=== PATIENT | female | born 1970 | race Caucasian/White ===

== ENCOUNTER 2017-03-29 22:26 | Emergency (ER) | payer BC, OTHER ==
--- NOTE | 2017-03-29 23:13 | ED.PDOC ---
History of Present Illness - General Chief Complaint: Lower Extremity Injury Stated Complaint: Left lateral foot pain Time Seen by Provider: 03/29/17 22:26 Source: patient, RN notes reviewed, Vital Signs reviewed, family Additional Information: Pt was walking back to her chair after dancing when she felt a pop and sudden pain at the base of her 5th metatarsal similar to the location and character she felt when she fractured this bone in May. Pt with pain weight bearing, especially - History of Present Illness Occurred: just prior to arrival Pain - Lower Extremity: moderate: Left Foot Method of Injury: twisted - /walking Improving Factors: immobilization Worsening Factors: movement - and weight-bearing Allergies/Adverse Reactions: Allergies Codeine Allergy (Verified 03/29/17 22:28) Home Medications: Ambulatory Orders Famotidine [Pepcid Tab] 20 mg PO BID #60 tab 12/29/15 Ondansetron [Zofran Odt] 4 mg PO Q4H PRN #10 tab 12/29/15 Sucralfate Tab [Carafate Tab] 1 gm PO Q6H #80 tab 12/29/15 Review of Systems - Review of Systems Constitutional: States: no symptoms reported EENTM: States: no symptoms reported Respiratory: States: no symptoms reported Cardiology: States: no symptoms reported Gastrointestinal/Abdominal: States: no symptoms reported Genitourinary: States: no symptoms reported Musculoskeletal: States: see HPI Skin: States: no symptoms reported Neurological: States: no symptoms reported Endocrine: States: no symptoms reported Hematologic/Lymphatic: States: no symptoms reported Past Medical History (General) - Patient Medical History Hx Seizures: No Hx Stroke: No Hx Dementia: No Hx Asthma: No Hx of COPD: No Hx Cardiac Disorders: No Hx Congestive Heart Failure: No Hx Pacemaker: No Hx Hypertension: No Hx Thyroid Disease: No Hx Diabetes: No Hx Gastroesophageal Reflux: No Hx Renal Disease: No Hx Cancer: No Hx Hepatitis C: No - Vaccination History Hx Tetanus, Diphtheria Vaccination: No - unk Hx Influenza Vaccination: No Hx Pneumococcal Vaccination: No - Social History Hx Tobacco Use: No Hx Chewing Tobacco Use: No Hx Alcohol Use: Yes - occ Hx Substance Use: No Hx Substance Use Treatment: No Hx Depression: No Hx Physical Abuse: No Hx Emotional Abuse: No Hx Suspected Abuse: No - Female History Patient : No Family Medical History - Family History Mother Family History: Unknown Physical Exam - Physical Exam General Appearance: Alert, Comfortable, No apparent distress - at rest, Well Developed, Well Groomed, Well Hydrated, Well Nourished Eyes, Ears, Nose, Throat: PERRL/EOMI, pharynx normal Neck: non-tender, full range of motion, supple, normal inspection Cardiovascular/Respiratory: regular rate, rhythm, normal peripheral pulses, no respiratory distress Gastrointestinal/Abdominal: non-tender Back: normal inspection Thigh/Hip: normal inspection, non-tender Leg: normal inspection, non-tender Knee: normal inspection, non-tender Ankle: normal inspection, non-tender Foot: normal inspection, normal ROM, bone tenderness - at base of 5th metatarsal Neuro/Tendon: normal sensation, normal motor functions, normal tendon functions Mental Status: alert, oriented x 3 Skin: normal color Progress - Progress Progress: 03/29/17 23:15 X-ray images reviewed with patient. Splint applied. Pt stable to be discharged home with crutches. Pt is to be non-weight bearing and she is to f/u with her foot/bone specialist. It appears to be re-fractured along the same fracture line from May. Procedures - Splinting Left Foot Hand-Made Type: orthoglass Splint: posterior walking Pre-Proc Neuro Vasc Exam: normal Post-Proc Neuro Vasc Exam: normal Departure - Departure Clinical Impression: Fracture of metatarsal of left foot, closed Qualifiers: Encounter type: initial encounter Metatarsal bone: fifth Fracture alignment: nondisplaced Qualified Code(s): S92.355A - Nondisplaced fracture of fifth metatarsal bone, left foot, initial encounter for closed fracture Time of Disposition: 23:15 Disposition: Discharge to Home or Self Care Condition: Good Departure Forms: ED Discharge - Pt. Copy, Patient Portal Self Enrollment Instructions: DI for Foot Fracture Referrals: MADAY KING [Primary Care Provider] - 1-2 Weeks Home Medications: Ambulatory Orders Famotidine [Pepcid Tab] 20 mg PO BID #60 tab 12/29/15 Ondansetron [Zofran Odt] 4 mg PO Q4H PRN #10 tab 12/29/15 Sucralfate Tab [Carafate Tab] 1 gm PO Q6H #80 tab 12/29/15 Additional Instructions: Non-weight bearing until seen by biochemistry specialist - use crutches for now. Follow-up with biochemistry specialist for further evaluation and management. Return on Friday to request a disc with the images of the x-ray if needed. Ice to affected area at least 3 or 4 times a day for 10-15 minutes to help with pain/swelling.
[2017-03-29] MEDS ORDERED: HYDROCOD/APAP 5/325 (ER DISP) #3 TAB PO ONE ×2 (23:19→23:20)
--- NOTE | 2017-03-29 23:21 | RAD ---
EXAM DESCRIPTION: Foot,Left 3 Views CLINICAL HISTORY: 46 years ,Female Left foot pain, old fracture 10 months ago with acute injury tonight COMPARISON: None. TECHNIQUE: LEFT foot, Three view FINDINGS: Chronic-appearing fragmentation along the superior margin of the talus. Small calcaneal spur. There is a transversely oriented fracture of the proximal diaphysis of the fifth metatarsal that the fracture shows no obvious callus formation. There appears to be some sclerosis. Findings may reflect an incompletely healed chronic fracture. Stress fracture not entirely excluded. No evidence of acute injury. IMPRESSION: Findings suggesting incomplete healing of previous fifth metatarsal fracture versus stress fracture. Recommend comparison to previous films of these are available Electronically signed by: Petra Adler 03/29/2017 11:20 PM CDT
[2017-03-29 23:42] VITALS: TEMP 98; O2SAT 98
[2017-03-29 23:51] VITALS: BP 132/68
== END 2017-03-29 23:15 | disposition home or self-care (01) ==
LOC: ER 22:26
DX: S92.355A Nondisplaced fracture of fifth metatarsal bone, left foot, initial encounter for closed fracture (principal); Z88.6 Allergy status to analgesic agent; X58.XXXA Exposure to other specified factors, initial encounter; Y93.41 Activity, dancing

== ENCOUNTER 2018-01-12 12:09 | Inpatient (IN) | payer BC, OTHER ==
[2018-01-12] MEDS ORDERED: ALUM & MAG HYDROX-SIMETHICONE 30 ML, LIDOCAINE VISCOUS 2% 15 ML PO ONE ×2 (12:18)
[2018-01-12] MEDS ORDERED: LIDOCAINE HCL 2% (MOUTH-THROAT) 15 ML UD ONE (12:20)
[2018-01-12] MEDS ORDERED: ALUM & MAG HYDROX-SIMETHICONE 30 ML UD ONE (12:20)
[2018-01-12] MEDS ORDERED: MORPHINE SULFATE INJ 10 MG/ML VIAL IV ONE ×2 (13:08→14:03)
--- NOTE | 2018-01-12 13:09 | RAD ---
EXAM DESCRIPTION: Abdomen Series CLINICAL HISTORY: epigasatric and substernal pain for 3 hours COMPARISON: December 29, 2015 FINDINGS: AP supine and upright views of the abdomen show a nonspecific, nonobstructive bowel gas pattern with no evidence for free intraperitoneal air. No air-filled dilated loops of small bowel are seen. No significant air-fluid levels are identified. No obvious organomegaly is seen. No abnormal calcifications are seen in the expected location of the renal collecting systems. Single view of the chest shows cardiac silhouette and pulmonary vasculature to be within normal limits. Lungs are normally aerated and clear. Postsurgical changes to the thoracolumbar spine are seen with moderate scoliosis of the spine identified similar to previous. IMPRESSION: Nonspecific abdominal series Electronically signed by: Gilberto Cooper MD 01/12/2018 1:07 PM CDT
[2018-01-12] MEDS ORDERED: PANTOPRAZOLE SODIUM IV 40 MG VIAL IV ONE (14:10)
[2018-01-12] MEDS ORDERED: PROMETHAZINE HCL INJ 25 MG in SODIUM CHLORIDE 0.9% 50ML 50 ML IVPB ONE (14:11)
[2018-01-12] MEDS ORDERED: PROMETHAZINE HCL INJ 25 MG/ML VIAL ONE (14:13)
[2018-01-12] MEDS ORDERED: SODIUM CHLORIDE 0.9% 50ML 50 ML ONE (14:14)
--- NOTE | 2018-01-12 14:28 | CT ---
EXAM DESCRIPTION: CTA Chest: Computed Tomography. CLINICAL HISTORY: epigastric substernal pain, sob, d-dimer COMPARISON: CT scan of the abdomen and pelvis on this visit. TECHNIQUE: Spiral-axial scans at 5.0 mm intervals through the pulmonary arteries and chest after bolus infusion of IV contrast. Lung algorithm-mm 2.5 axial reconstructions. 10.0 mm bilateral PE oblique and rotating short axis thoracic 3-D reformatted images. No adverse reactions. Total Exam DLP: 2155.48 mGy-cm. This exam was performed according to our departmental CT dose-optimization program which includes automated exposure control, adjustment of the mA and/or kV according to patient size and/or use of iterative reconstruction technique; to reduce radiation dose to as low as reasonably achievable (ALARA). FINDINGS: The timing of contrast density in the main pulmonary artery was not optimal, similar to the density in the ascending and descending aorta and less than the density of contrast in the SVC. Contrast seen in the main pulmonary artery to the bilateral segmental arteries with no filling defects. Peripheral segmental pulmonary artery branches are symmetric in the lower lobes and upper lobes. 1.5 cm nonenhancing nodule in the inferior pole of the left thyroid lobe. No soft tissue masses in the bilateral axilla. No soft tissue masses or adenopathy in the mediastinum or hilum bilaterally. No significant abnormalities of the thoracic aorta or proximal brachiocephalic vessels. Minimal dependent atelectasis in the posterior left lower lobe. No abnormal nodules infiltrates. Minimal pleural thickening but no effusion. No pneumothorax. Complex mass interpreted to be part of the upper pole of the left kidney. Posterior thoracic fusion construct bilaterally. Connecting rods T5 to at least the T12 level. IMPRESSION: 1. Technique not optimal, but no CT evidence of acute pulmonary embolus. No significant pulmonary process visualized. 2. 1.5 cm nonenhancing nodule in the left lobe of the thyroid gland. Recommend follow-up thyroid ultrasound according to [facility] Best Practice recommendations utilizing ACR and Nova 3 tiered guidelines for imaging follow-up of incidental thyroid nodules. Please see below.* 3. Posterior thoracic spine fusion construct with connecting rods. 4. Complex mass interpreted to be part of her originating from the upper pole of the left kidney. Please see abdominal pelvic CT scan report. Electronically signed by: Roland Morataya MD 01/12/2018 2:27 PM CDT
--- NOTE | 2018-01-12 15:42 | CT ---
EXAM DESCRIPTION: Abdomen/Pelvis w/Contrast: Computed Tomography. CLINICAL HISTORY: Right upper quadrant epigastric substernal pain, elev d-dimer, AST COMPARISON: None. TECHNIQUE: Spiral-axial scans at 5.0 mm intervals through the abdomen and pelvis, after nonionic IV contrast without oral contrast. Axial 2.5 mm reconstructions. Coronal and sagittal 2.0 mm reconstructions. Delayed scans, liver through the pelvis. Axial-spiral 5mm. No adverse reactions. Total Exam DLP: 1372.96 mGy-cm For the abdomen, and 800.71 mGy-centimeters for the chest . This exam was performed according to our departmental dose-optimization program which includes automated exposure control, adjustment of the mA and/or kV according to patient size and/or use of iterative reconstruction technique; to reduce radiation dose to as low as reasonably achievable (ALARA). FINDINGS: Liver, Stomach, Spleen, Adrenal Glands: Stomach is not distended. 1.7 cm cyst inferior spleen. Other solid organs are unremarkable. Pancreas, Gallbladder, Ducts: Gallbladder well demonstrated. No fluid in the gallbladder fossa. Duct not dilated. Pancreas is unremarkable. Kidneys and Ureters: In the left renal fossa is a complex structure with 3 relatively well-defined cysts ranging in size from 5 cm to 2.5 cm in diameter with a vascular stalk which appears to be connected to the IVC. No vascular connection to the aorta is noted. No fatty stranding or perirenal fascial thickening. Left ureter is not visualized. Right kidney measures 12.8 x 7.8 x 7.5 cm with normal enhancement no hydronephrosis or cysts. No pararenal fascial thickening. Proximal ureter is slightly dilated with distal ureter unremarkable. Mesentery: Minimal density in the mid mesentery in the midline extending inferior to the upper pelvis. Lymph nodes scattered throughout this denser mesentery some with short axis diameters 1.5 cm (series 2, image 42. No free air. No ascites. Aorta: Normal caliber of the abdominal aorta with no para-aortic mass. Small Bowel: Mostly fluid minimal gas and small air-fluid levels but no transitional point with uniform caliber. Terminal Ileum/Cecum: Normal caliber. Posterior and inferior appendix normal caliber. Normal density of the surrounding fat. Colon: Fecal matter with minimal redundancy proximal and mid colon. Minimal redundancy of the sigmoid colon. Pelvic Organs: No radiodense stones in the urinary bladder. Cystic structure on the fundus of a hypoplastic uterus or is part of the vaginal cuff, though surgical clips are not present. Right adnexal multicystic structure, interpreted to be ovary. Trace fluid in the cul-de-sac. Left ovary not definitely seen. No abnormal pelvic calcifications. Spine and Bony Pelvis: Degenerative disc L3-4 L4-5. Scoliosis. Upper lumbar and thoracic posterior fusion construct. Abdominal Wall/Back Soft Tissues: Minimal diastases at the umbilicus but no hernia. Bilateral fatty inguinal hernias not containing bowel. IMPRESSION: 1. Increase density in the mesenteric fat in the mid abdomen beginning just below the pancreas and extending to the level of the upper pelvis. Scattered nodes within this tissue with the largest having a short axis diameter 1.5 cm. No periaortic, periportal, or peripancreatic lymph nodes. No small bowel obstruction or definite inflammatory changes. Differential includes mesenteric adenitis, small bowel enteritis, or lymphoma. 2. 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 No calcifications. No vascular pedicle to the aorta. Normal density of the fat with no perirenal fluid. Hyper trophic right kidney otherwise negative. 3. 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 No fatty inflammatory changes or calcifications. Ligament extends to the left adnexa but no left ovary is seen. Minimal fluid in the cul-de-sac. Hysterectomy? Alternatively, hypoplastic uterus and midline ovary with cyst in the bladder. This could represent a genitourinary tract anomaly with the left kidney. 4. Umbilical diastases and inguinal fatty hernias without bowel. Spondylosis in the lumbar spine and thoracolumbar posterior fusion construct. CRITICAL COMMUNICATION: The critical value was discussed directly by phone with Dr. Lázaro Flaherty at approximately 1450 hours, on January 12, 2018. Electronically signed by: Roland Morataya MD 01/12/2018 3:41 PM CDT
[2018-01-12] MEDS ORDERED: metroNIDAZOLE IV PREMIX 500MG 500 MG in PREMIX BAG 1 BAG IVPB ONE (16:05)
[2018-01-12] MEDS ORDERED: levoFLOXacin 500MG IV 500 MG in PREMIX BAG 1 BAG IVPB ONE (16:05)
--- NOTE | 2018-01-12 16:07 | ED.PDOC ---
History of Present Illness - General Chief Complaint: Cardiovascular Problem Stated Complaint: chest pain Time Seen by Provider: 01/12/18 12:11 Source: patient Exam Limitations: no limitations - History of Present Illness Initial Comments: the patient is a 47-year-old female presenting to the emergency room secondary to epigastric, right upper quadrant and substernal discomfort that got severe about 2-3 hours prior to arrival here today. She had been having some GI symptoms for the last week including some mild nausea with some upper abdominal pain and some diarrhea. No syncope or near-syncope. She denies fevers. No blood in the stool. She does have several chronic issues including her back her uterus and her left kidney. She alsohas a known hiatal hernia that gies her problems sometimes. Pain was severe here today. She has are several doses of IV pain medicationsshe has not thrown up. Allergies/Adverse Reactions: Allergies Codeine Allergy (Verified 01/12/18 12:25) Home Medications: Ambulatory Orders Famotidine [Pepcid Tab] 20 mg PO BID #60 tab 12/29/15 Ondansetron [Zofran Odt] 4 mg PO Q4H PRN #10 tab 12/29/15 Sucralfate Tab [Carafate Tab] 1 gm PO Q6H #80 tab 12/29/15 Review of Systems - Review of Systems Constitutional: States: malaise EENTM: States: no symptoms reported Respiratory: States: no symptoms reported Cardiology: States: chest pain Gastrointestinal/Abdominal: States: abdominal pain, diarrhea, nausea Genitourinary: States: no symptoms reported Musculoskeletal: States: no symptoms reported Skin: States: no symptoms reported Neurological: States: no symptoms reported Endocrine: States: no symptoms reported All other Systems: No Change from Baseline Past Medical History (General) - Patient Medical History Hx Seizures: No Hx Stroke: No Hx Dementia: No Hx Asthma: No Hx of COPD: No Hx Cardiac Disorders: No Hx Congestive Heart Failure: No Hx Pacemaker: No Hx Hypertension: No Hx Thyroid Disease: No Hx Diabetes: No Hx Gastroesophageal Reflux: Yes Hx Renal Disease: No Hx Cancer: No Hx Hepatitis C: No Hx MRSA: No Surgical History: Hysterectomy - Vaccination History Hx Tetanus, Diphtheria Vaccination: No Hx Influenza Vaccination: No Hx Pneumococcal Vaccination: No - Social History Hx Tobacco Use: No Hx Chewing Tobacco Use: No Hx Alcohol Use: Yes - occ Hx Substance Use: No Hx Substance Use Treatment: No Hx Depression: No Hx Physical Abuse: No Hx Emotional Abuse: No Hx Suspected Abuse: No - Female History Patient : No Family Medical History - Family History Mother Family History: Unknown Physical Exam - Physical Exam General Appearance: Alert, Obvious distress Eye Exam: bilateral normal Ears, Nose, Throat: hearing grossly normal, normal ENT inspection, normal pharynx Neck: full range of motion, supple Respiratory: lungs clear, normal breath sounds, no respiratory distress, no accessory muscle use Cardiovascular/Chest: normal peripheral pulses, regular rate, rhythm, no edema Peripheral Pulses: radial,right: 2+, radial,left: 2+, dorsalis pedis,right: 2+, dorsalis pedis,left: 2+ Gastrointestinal/Abdominal: soft, other - pigastric and right upper quadrant discomfort palpation. No true rebound. Rectal Exam: deferred Back Exam: normal inspection, no CVA tenderness Extremity: normal range of motion, non-tender, normal inspection, no pedal edema , normal capillary refill Neurologic: information technology analyst II-XII nml as tested, no motor/sensory deficits, alert, oriented x 3 Skin Exam: normal color Comments: Vital Signs - 24 hr 01/12/18 01/12/18 12:09 12:25 Temperature 97.8 F Pulse Rate [ 73 pulse ox] Respiratory 20 20 Rate Blood Pressure 163/84 [Left Arm] O2 Sat by Pulse 100 Oximetry Progress - Progress Progress: 01/12/18 16:09 the patient is a 47-year-old female presenting to the emergency room with severe epigastric right upper quadrant and substernal discomfort. This is most likely related to small bowel enteritis versus mesenteric adenitis. The patient is being placed on Levaquin and metronidazole. One blood culture has been performed. She is requiring some IV pain medications for pain control. She has received 1 dose of nausea medications as well. She does have numerous chronic findings on her CT scan for which she seems to be aware of. Admit for continuation of IV antibiotics and for monitoring for response. She will be receiving a small IV fluid bolus after the antibiotics are in. Admitted for further care. - Results/Orders Results/Orders: 01/12/18 12:18 Telemetry .CONTINUOUS 01/12/18 12:30 EKG STAT 01/12/18 13:10 Hold Metformin x 48Hrs [id number] 01/12/18 15:19 BLOOD CULTURE Stat 01/12/18 16:05 levoFLOXacin 500MG IV [Levaquin 500MG IV] 500 mg Premix Bag 1 bag IVPB ONCE metroNIDAZOLE IV PREMIX 500MG [Flagyl IV Premix 500 MG/100 ML] 500 mg Premix Bag 1 bag IVPB ONCE Laboratory Results - last 24 hr 01/12/18 01/12/18 01/12/18 12:20 12:20 12:20 WBC 10.4 RBC 4.33 Hgb 12.5 Hct 36.9 MCV 85.2 MCH 28.9 MCHC 33.9 RDW 13.7 Plt Count 282 MPV 8.9 Absolute Neuts (auto) 7.50 H Absolute Lymphs (auto) 1.90 Absolute Monos (auto) 0.90 H Absolute Eos (auto) 0.10 Absolute Basos (auto) 0.00 Neutrophils % 72.5 Lymphocytes % 18.1 L Monocytes % 8.3 Eosinophils % 0.7 L Basophils % 0.4 PT 10.4 INR 0.900 PTT (SP) 28.2 D-Dimer, Quantitative 366 H* Sodium 136 Potassium 3.7 Chloride 103 Carbon Dioxide 26 Anion Gap 10.7 L BUN 10 Creatinine 0.78 BUN/Creatinine Ratio 12.8 Random Glucose 96 Serum Osmolality 270.9 L Calcium 8.5 Magnesium 1.8 Total Bilirubin 1.2 H AST 110 H ALT 59 Alkaline Phosphatase 81 Creatine Kinase 120 CK-MB (CK-2) 1.2 CK-MB (CK-2) % Not Reportable Troponin I < 0.02 B-Natriuretic Peptide 231.0 H* Serum Total Protein 7.1 Albumin 3.9 Globulin 3.2 Albumin/Globulin Ratio 1.2 Amylase 32 Urine Color Urine Appearance Urine pH Ur Specific [place] Urine Protein Urine Glucose (UA) Urine Ketones Urine Blood Urine Nitrite Urine Bilirubin Urine Urobilinogen Ur Leukocyte Esterase Urine RBC Urine WBC Ur Epithelial Cells Urine Bacteria Urine HCG, Qual 01/12/18 01/12/18 12:20 12:38 WBC RBC Hgb Hct MCV MCH MCHC RDW Plt Count MPV Absolute Neuts (auto) Absolute Lymphs (auto) Absolute Monos (auto) Absolute Eos (auto) Absolute Basos (auto) Neutrophils % Lymphocytes % Monocytes % Eosinophils % Basophils % PT INR PTT (SP) D-Dimer, Quantitative Sodium Potassium Chloride Carbon Dioxide Anion Gap BUN Creatinine BUN/Creatinine Ratio Random Glucose Serum Osmolality Calcium Magnesium Total Bilirubin AST ALT Alkaline Phosphatase Creatine Kinase CK-MB (CK-2) CK-MB (CK-2) % Troponin I B-Natriuretic Peptide Serum Total Protein Albumin Globulin Albumin/Globulin Ratio Amylase Urine Color Yellow Urine Appearance Clear Urine pH 6.0 Ur Specific [place] 1.025 Urine Protein 30 Urine Glucose (UA) Negative Urine Ketones Negative Urine Blood Negative Urine Nitrite Negative Urine Bilirubin Small H Urine Urobilinogen 1.0 Ur Leukocyte Esterase Negative Urine RBC 0 Urine WBC 0 Ur Epithelial Cells 1-3 Urine Bacteria 0 Urine HCG, Qual Negative acute abdominal series appears benign. CT scan with contrast for evaluation for pulmonary emboli was negative. CT scan of the abdomen and pelvis with IV contrast shows multiple chronic findings including cyst in place of the left kidney as well as a cyst in the distal ureter into the bladder on the left. She also has a deformed uterus with likely only one ovary that is overtaken by cysts. She also has chronic changes of her spine. More acutely the patient most likely has mesenteric adenitis versus a small bowel enteritis. lesS likely lymphoma is on the differential. Please see CT scan report for details. Departure - Departure Clinical Impression: Mesenteric adenitis Disposition: Admit Patient Referrals: MADAY KING [Primary Care Provider] - 1-2 Weeks Home Medications: Ambulatory Orders Famotidine [Pepcid Tab] 20 mg PO BID #60 tab 12/29/15 Ondansetron [Zofran Odt] 4 mg PO Q4H PRN #10 tab 12/29/15 Sucralfate Tab [Carafate Tab] 1 gm PO Q6H #80 tab 12/29/15 Decision To Admit - Decistion To Admit Decision to Admit Reason: Medical Nature Decision to Admit Date: 01/12/18 Decision to Admit Time: 16:10
[2018-01-12] MEDS ORDERED: metroNIDAZOLE IV PREMIX 500MG 100 ML IVPB ONE (16:09)
--- NOTE | 2018-01-12 16:28 | HP ---
SUPERVISING PHYSICIAN: Kris Flaherty M.D. CHIEF COMPLAINT: Chest pain. HISTORY OF PRESENT ILLNESS: Ms. Ghotra is a 47 year-old female patient that was at work today when she had an acute onset of right upper quadrant and substernal discomfort persisting over the last 2 to 3 hours prior to admission. She noted that she had been having some nausea and diarrhea with some right upper quadrant abdominal pain over the last week, but the pain had worsened today such that she sought medical attention for further evaluation and treatment. She also notes that she had been exposed to a grandson who has had Strep which she tested positive for Strep on 12/10/17 and was treated with Penicillin and Decadron as well as last week one of her granddaughters was visiting that had a gastrointestinal virus with nausea, vomiting and diarrhea. Her laboratory studies initially showed her white count was normal at 10,400 but a left shift was present. She had an elevated D-dimer at 366 with normal PT and PTT. Cardiac troponin showed to be less than 0.02 with amylase normal at 32. BNP was only slightly elevated at 231. Her initial EKG in the Emergency Department showed a normal sinus rhythm without any ST or T wave changes. She was given pain medicine in the E. R. to include morphine, Motrin and some Phenergan which did improve her symptoms as well as a GI cocktail. It should also be noted that the patient has had multiple surgeries on her foot and back, and has had chronic pain with this for which she takes a daily NSAID which includes Naproxen. She denied any blood in her stools in the recent past but has history of gastroesophageal reflux disease and requires daily Nexium that has apparently become quite troublesome in the last month or so if she misses any dose of her Nexium. Radiographically, she had an abdominal x-ray that initially showed nonspecific abdominal series per radiology interpretation with an elevated D-dimer and chest pain. She had a clear thoracic CTA and per radiology interpretation there was no evidence of acute pulmonary embolus and no significant pulmonary processes visualized. 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 Acutel included an increased density in the mesenteric fat in the mid abdomen that began just below the pancreas and extended to the level of the upper pelvis with scattered nodes within the tissue concerning for possible mesenteric adenitis, small bowel enteritis or lymphoma with no small bowel obstruction or definite inflammatory changes noted. Again the findings on CT were concerning for mesenteric adenitis versus enteritis. She was started on antibiotics to include Levaquin and Flagyl and is now going to be admitted to the Medical/Surgical floor for further treatment and evaluation. She was admitted in stable condition. PAST MEDICAL HISTORY: 1. Scoliosis. 2. Gastroesophageal reflux disease. PAST SURGICAL HISTORY: 1. Jag rods in the . 2. Vaginal hysterectomy partial in 2002. 3. Tubal ligation in 1996. 4. Left foot surgery in 2005 and 2016. 5. Lumbar laminectomy of L5, L3 and L7 in 2014. HOME MEDICATIONS: 1. Naprosyn 500 mg as needed. She takes it daily on a regular basis. 2. Nexium 40 mg daily. ALLERGIES: CODEINE. FAMILY HISTORY: Father had prostate cancer and thyroid problems as well as hypertension. She has several aunts who have had breast cancer. SOCIAL HISTORY: The patient lives in [place], [place]. She is . 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 She rarely drinks alcohol and has never smoked tobacco. REVIEW OF SYSTEMS: CONSTITUTIONAL: Notes that she has had some fevers and chills over the last week or so and general malaise. HEENT: Recent Strep pharyngitis. No reported current sore throat, nasal congestion, ear aches. RESPIRATORY: Denies any shortness of breath, cough or wheezing. CARDIOVASCULAR: As noted in History of Present Illness, chest pains in the epigastric region. GASTROINTESTINAL: Abdominal pains, diarrhea and nausea as noted in history of present illness. GENITOURINARY: No dysuria, hematuria, polyuria or other urinary symptoms. NEUROLOGIC: Denies any ataxia, seizures, syncopal episodes or other neurological deficits. PHYSICAL EXAMINATION: VITAL SIGNS: Temperature on admission was 97.8, pulse 73, blood pressure 163/84 , respirations 20, satting 100% on room air. Admission weight 101.8 kg. GENERAL: On exam on the Medical/Surgical floor, the patient appeared to be comfortable in no acute distress and alert. HEENT: Tympanic membranes are clear bilaterally. Oropharynx is pink and moist with no lesions. NECK: Supple, non-tender with full range of motion. CHEST: Lungs were clear to auscultation without any rhonchi, wheezing or rales. CARDIOVASCULAR: Regular rate and rhythm without appreciable murmurs, gallops, or rubs. ABDOMEN: Soft with some epigastric and right upper quadrant discomfort on palpation but no rebound tenderness. Bowel sounds were present. EXTREMITIES: No clubbing, cyanosis or edema. NEUROLOGIC: She is alert and oriented times three. Cranial nerves II-XII are grossly intact. LABORATORY: CBC on admission showed white count 10,400, hemoglobin 12.5, hematocrit 36.9, platelet count 282,000. Differential did show an early left shift. She had a sed rate that was elevated at 30. Coagulation studies showed an elevated D-dimer at 366 with PT 10.4, PTT 28.2. Chemistries showed normal electrolytes, BUN 10, creatinine 0.78, calcium 8.5, magnesium 1.8. Total bilirubin was slightly elevated at 1.2. AST was elevated at 110, alkaline phosphatase normal, ALT normal. Amylase normal. She had a C reactive protein that was 0.5. Initial cardiac troponins showed less than 0.02 with normal CPK and CK-MB. BNP was slightly elevated at 231. Urinalysis just showed a small amount of bilirubin on dipstick, otherwise within normal limits. Urine HCG was negative. [place] screen was negative. MICROBIOLOGY: Blood culture is pending. RADIOLOGY: Initially she had an abdominal x-ray in the Emergency Department with nonspecific findings. This was followed-up with an abdominal and pelvic CT with contrast again with multiple chronic findings as listed in the report. Please see report for full details. Acute findings listed per radiology interpretation showed increased density of the mesenteric fat in the mid abdomen beginning just below the pancreas and extending to the level of the upper pelvis with scattered nodes within this tissue, largest with short axis of 1.5 cm with no periaortic, periportal or peripancreatic lymph nodes. No small bowel obstruction or definite inflammatory changes. Differential would include mesenteric adenitis, small bowel enteritis versus lymphoma. She had a CTA of the chest and per radiology interpretation there was no CT evidence of acute pulmonary embolus. No significant pulmonary processes visualized. There was a 1.5 cm nonenhancing nodule in the left lobe of the thyroid. There was also note of a posterior thoracic spine fusion construct with connecting rods and a complex mass interpreted to be originally from the upper pole of the left kidney. Please see that CT report for full details of the abdomen and pelvis. ASSESSMENT: 1. Chest pain rule out with initial cardiac workup to be negative, including a negative troponin and normal EKG. 2. CT findings concerning for a mesenteric versus small bowel enteritis possibly resulting in #1 with the patient having a recent Streptococcal pharyngitis infection as well as an episode of viral gastroenteritis within the last 2 weeks. 3. Gastroesophageal reflux disease on Nexium possibly exacerbated by chronic NSAID usage and resulting in referred pain as noted in #1 for possible chest pain with epigastric discomfort secondary to duodenitis or gastritis . Will need GI referral after discharge for follow-up. 4. Scoliosis with Jag marilu placements in the 80s. 5. CT finding of nonenhancing nodule in the left lobe of the thyroid. . 6. Elevated liver enzymes , AST, and mildly elevated total bilirubin of uncertain etiology. Hepatitis panel pending. PLAN: The patient is going to be admitted to the Medical/Surgical floor for initiation of treatment with concerns for mesenteric adenitis versus small bowel enteritis for which she was started on antibiotics including Levaquin and Flagyl after blood cultures were completed in the Emergency Department. Will continue with current regimen of Flagyl and Levaquin. Will need to rule out further cardiac event such as myocardial infarction with repeat cardiac enzymes every 6 hours and EKGs. She will be on DVT prophylaxis as per protocol. Given her elevated AST and bilirubin, will hold off any Tylenol and utilize morphine for pain control. Will plan to repeat labs in the morning as well as abdominal series. My need to consdre Ultrasound of liver in the AM. I have ordered stool workup, including cultures and occult blood. Will anticipate her length of stay to be at least 2 to 3 days. Until clinically stable, will continue to monitor and treat appropriately. #[id number] [facility]
[2018-01-12] MEDS ORDERED: SODIUM CHLORIDE 0.9% (FLUSH) 10 ML SYG IV PRN (16:34)
[2018-01-12] MEDS ORDERED: IBUPROFEN 400 MG TAB PO PRN (16:39)
[2018-01-12] MEDS ORDERED: IV SET AND CAP CHANGE INJ INJ SCH (17:00)
[2018-01-12] MEDS ORDERED: levoFLOXacin 500MG IV 100 ML IVPB ONE (17:42)
[2018-01-12] MEDS: MORPHINE SULFATE INJ 10 MG/ML VIAL IV PRN ×2 (18:45→22:45)
--- NOTE | 2018-01-12 21:48 | PCM.CORE ---
Physician DVT/VTE - Nurse DVT Assessment & Total Each Risk Factor Represents 1 Point: Age 41-60 Each Risk Factor is 1 Point: Hx of Inflammatory Bowel Disease, Obesity (BMI >25) DVT Assessment Score: 3 - 3-4 High Risk Treatments: Early Ambulation *, Sequential Compression Device Pharmacological: Enoxaparin 40 mg SQ Daily
[2018-01-13] MEDS ORDERED: PANTOPRAZOLE SODIUM IV 40 MG VIAL IV SCH (09:00)
[2018-01-13] MEDS ORDERED: levoFLOXacin 500MG IV 100 ML IVPB ONE (10:05)
--- NOTE | 2018-01-13 10:09 | RAD ---
EXAM DESCRIPTION: Abdomen Flat Upright CLINICAL HISTORY: 47 years Female, RUQ/epigastric pain COMPARISON: January 12, 2018 FINDINGS: Single view of the abdomen demonstrates spinal rods in place from the upper thoracic to the upper lumbar spine with moderate degenerative changes. Bowel gas pattern is relatively normal with moderate stool in the right and transverse colon. No evidence of small bowel obstruction is seen. Small air-fluid level in the stomach on this upright view is noted. The lung bases are clear. Soft tissue masses or unusual calculi are not apparent. IMPRESSION: Stable nonspecific essentially normal abdomen one view. Electronically signed by: Kris Omer MD 01/13/2018 10:08 AM CDT
[2018-01-13] MEDS: levoFLOXacin 500MG IV 500 MG in PREMIX BAG 1 BAG IVPB SCH (10:29)
[2018-01-13] MEDS ORDERED: metroNIDAZOLE IV PREMIX 500MG 100 ML IVPB ONE ×2 (12:20→18:12)
[2018-01-13] MEDS: ENOXAPARIN SODIUM 40 MG/0.4 ML SYG SUBCU SCH (12:21)
[2018-01-13] MEDS: metroNIDAZOLE IV PREMIX 500MG 500 MG in PREMIX BAG 1 BAG IVPB SCH ×2 (12:21→18:32)
--- NOTE | 2018-01-13 14:03 | US ---
EXAM DESCRIPTION: Liver: ULTRASOUND. CLINICAL HISTORY: Acute Elevation of LFT COMPARISON: CT abdomen and pelvis 01/12/2018. TECHNIQUE: Transabdominal scannin-dimensional and Doppler modes. Technically difficult study due to patient body habitus. FINDINGS: Gallbladder: Contains multiple echogenic structures, at least 3 measurable and likely stones. Largest has caliber 1 cm. No fluid around the gallbladder. Wall thickening 8.8 mm Non-tender with transducer pressure. Common bile duct: caliber 4.4 mm within normal limits. Liver: Increased heterogeneous echogenicity; contour liver capsule smooth where seen. No fluid around the liver. Intrahepatic biliary ducts normal caliber. Doppler hepatopedal flow portal vein.. 0.8 cm caliber. Long axis right lobe 14.7 cm. Pancreas: normal size and echogenicity. Duct not seen. Right kidney: long axis measures 13.3 cm. Normal Echogenicity. Cortical thickness 10 mm. No hydronephrosis IMPRESSION: 1. Multiple stones in the gallbladder with wall thickening but not tender with transducer pressure. No surrounding fluid. This could represent chronic cholecystitis. 2. Steatosis of the liver with no enlargement. Smooth capsule with normal ducts and vascularity. No ascites. Normal ultrasound of the pancreas. 3. Normal size and echogenicity of the right kidney with cortical thinning. No definite stones or hydronephrosis. Electronically signed by: Roland Morataya MD 01/13/2018 2:02 PM CDT
--- NOTE | 2018-01-13 17:50 | CONS ---
DATE OF CONSULTATION: 01/13/18 HISTORY OF PRESENT ILLNESS: The patient is a 47 year-old female who was admitted with right upper quadrant abdominal and substernal discomfort for 2 or 3 hours prior to admission. She has had discomfort in the right upper quadrant and associated nausea and vomiting for at least a week and also had a virus or a viral type illness along with one of her granddaughters that caused nausea, vomiting, fever and diarrhea. She does state that she has had a director long term care problem with eating fatty meals but has no history of hepatitis or jaundice to her knowledge. PAST MEDICAL HISTORY: 1. Scoliosis status post Bowers rods. 2. Known gastroesophageal reflux disease. PAST SURGICAL HISTORY: 1. Vaginal hysterectomy. 2. Tubal ligation. 3. Surgery on her left foot. 4. Lumbar laminectomy. 5. Status post child . CURRENT MEDICATIONS: 1. Naprosyn. 2. Nexium. ALLERGIES: CODEINE. FAMILY HISTORY: Positive for prostate cancer, hypertension, thyroid disease and breast cancer in several aunts. SOCIAL HISTORY: The patient is . Does not smoke and rarely uses alcohol. REVIEW OF SYSTEMS: The patient is more comfortable at this point than she was, but still is tender in the right upper quadrant. She is actually thirsty. She denies shortness of breath or ongoing chest pain. PHYSICAL EXAMINATION: VITAL SIGNS: Currently afebrile and normotensive. HEENT: Reveals the sclera to be nonicteric. Mucous membranes are moist. NECK: Without adenopathy. BACK: Without CVA tenderness. CHEST: She has equal breath sounds bilaterally. HEART: Regular rate and rhythm. ABDOMEN: Soft. Tender in the right upper quadrant without mass or guarding. Bowel sounds are active. PELVIC AND RECTAL: Examinations are deferred. EXTREMITIES: Without clubbing, cyanosis or edema. LABORATORY: White count today of 4,000 down from 10,000 with no left shift. Hemoglobin 11.9. She has 225,000 platelets. Bilirubin today is 1.9 which is up from 2 on admission. AST, ALT and alkaline phosphatase are all elevated from admission. Potassium 4, creatinine 0.76. Amylase and lipase are within normal limits. Hepatitis panel is pending. Ultrasound of the gallbladder reveals gallbladder wall thickening with a normal duct. No pericholecystic fluid and a thickened gallbladder wall with no ultrasound Malagon's sign most consistent with chronic cholecystitis and cholelithiasis. It is noted that there appears to be fatty infiltration of the liver on ultrasound also. PLAN: Make the patient NPO at midnight. Repeat all lab in the morning. A GI consultation will be obtained from Dr. Crow. Continue the antibiotics currently. Review the patient in the morning. #[id number] [facility]
[2018-01-13] MEDS ORDERED: KCL 20MEQ/D5NS 1,000 ML IVS PRN (19:49)
--- NOTE | 2018-01-13 20:43 | PN ---
DATE: 01/13/18 SUPERVISING PHYSICIAN: Kris Flaherty M.D. SUBJECTIVE: The patient has been afebrile. She continues to have some nausea but has not had any actual emesis. She still continue to have some mild epigastric discomfort which is easily treated with morphine. She has reported no diarrhea since admission. OBJECTIVE: VITAL SIGNS: Temperature 98.1, pulse 57, blood pressure 99/62, respirations 16, satting 96% on room air. I's and O's show a positive balance with a weight of 101.8 kg. She has not had a bowel movement since admission. CHEST: Lungs are clear to auscultation bilaterally. HEART: Regular rate and rhythm. ABDOMEN: Soft with some tenderness noted in the right upper quadrant but no guarding or rebound. Bowel sounds are present. EXTREMITIES: No clubbing , cyanosis or edema. NEUROLOGIC: She is alert and oriented times three. LABORATORY: White count today is 4,700, hemoglobin 11.1, hematocrit 35.8, platelet count 245,000. Differential shows to be without a left shift. Chemistries show sodium 133, potassium 4.0, BUN 10, creatinine 0.76, calcium 8.2. Bilirubin 1.9, direct bilirubin 1.1, indirect 0.8. Liver functions show an elevation today with AST of 398, ALT of 298 and alkaline phosphatase at 129. Cardiac enzymes were all negative at less than 0.02. Amylase and lipase were both normal today. Hepatitis panel is pending.' MICROBIOLOGY: Blood cultures remain negative after 24 hours. RADIOLOGY: Abdominal series this morning per radiology interpretation show a stable nonspecific essentially normal abdomen one view. Liver ultrasound per radiology interpretation showed multiple stones in the gallbladder with wall thickening but not tender from transducer pressure. There was no surrounding fluid. This could represent chronic cholecystitis. There is also note of steatosis of the liver with no enlargement. Normal ultrasound of the pancreas. ASSESSMENT: 1. Chest pain with epigastric pain on assessment felt to be related to abdominal discomfort with cardiac workup being negative with CT findings showing concerns for mesenteric versus small bowel enteritis. 2. Questionable mesenteric adenitis versus small bowel enteritis with elevated liver enzymes showing some improvement with IV fluids. 3. Elevated liver enzymes with CT findings consistent with probable chronic cholecystitis with hepatitis panel pending. 4. Gastroesophageal reflux disease likely exacerbated by chronic NSAID usage with gastrointestinal consultation pending. 5. Scoliosis with Jag marilu placements in the 80s. 6. CT finding of a nodule in the left lobe of the thyroid. PLAN: Will continue with antibiotics today with Levaquin and Flagyl. I have ordered a consultation with GI speciality which should be Dr. Crow in the morning. His office has been notified. Dr. Canada has been consulted as well in regards to the CT findings of the gallbladder. The patient will be made NPO tonight. She is on clear liquids currently and will await further management based off consultation from Dr. Crow and Dr. Canada. She will be started on some IV fluids tonight after she has been made NPO and will continue with DVT prophylaxis as per protocol. Will plan to repeat laboratory in the morning including CRP and liver enzymes. Until clinically stable, will continue to monitor and treat appropriately. #[id number] [facility]
[2018-01-14] MEDS ORDERED: metroNIDAZOLE IV PREMIX 500MG 100 ML IVPB ONE ×4 (02:58→20:07)
[2018-01-14] MEDS: metroNIDAZOLE IV PREMIX 500MG 500 MG in PREMIX BAG 1 BAG IVPB SCH ×3 (02:59→18:33)
[2018-01-14] MEDS: PANTOPRAZOLE SODIUM IV 40 MG VIAL IV SCH (06:09)
[2018-01-14] MEDS ORDERED: PANTOPRAZOLE SODIUM TAB 40 MG PO SCH (06:30)
[2018-01-14] MEDS ORDERED: levoFLOXacin 500MG IV 100 ML IVPB ONE (07:42)
[2018-01-14] MEDS: ENOXAPARIN SODIUM 40 MG/0.4 ML SYG SUBCU SCH (09:15)
[2018-01-14] MEDS: levoFLOXacin 500MG IV 500 MG in PREMIX BAG 1 BAG IVPB SCH (09:15)
[2018-01-14] MEDS ORDERED: HEPARIN SODIUM (PORCINE) 10,000 UNITS/ML VIAL ONE (11:10)
[2018-01-14] MEDS ORDERED: BUPIVACAINE 0.25% W/EPI 50 ML VIAL INJ ONE (11:10)
[2018-01-14] MEDS ORDERED: TEMAZEPAM 15 MG CAP PO PRN (11:11)
[2018-01-14] MEDS ORDERED: ROCURONIUM BROMIDE 10 MG/ML VIAL ONE (11:47)
[2018-01-14] MEDS ORDERED: MIDAZOLAM INJ 2 MG/2 ML VIAL ONE (11:47)
[2018-01-14] MEDS ORDERED: fentaNYL CITRATE INJ 50 MCG/ML AMP ONE (11:47)
[2018-01-14] MEDS ORDERED: ELECTROLYTE-A 1,000 ML IVS ONE (11:56)
[2018-01-14] MEDS ORDERED: HYDROmorphone HCL INJ 2 MG/ML VIAL ONE (12:59)
[2018-01-14] MEDS ORDERED: NEOSTIGMINE METHYLSULFATE 1 MG/ML ML IV ONE (14:00)
[2018-01-14] MEDS ORDERED: raNITIdine HCL INJ 25 MG/ML VIAL ONE (14:00)
[2018-01-14] MEDS ORDERED: ATROPINE SULFATE 0.4 MG/ML 1ML VIAL ONE (14:00)
[2018-01-14] MEDS ORDERED: METOCLOPRAMIDE HCL INJ 10 MG/2 ML VIAL ONE (14:00)
[2018-01-14] MEDS ORDERED: DEXAMETHASONE INJ 10 MG/ML VIAL ONE (14:00)
[2018-01-14] MEDS ORDERED: LIDOCAINE 1% 10 ML VIAL INJ ONE (14:00)
[2018-01-14] MEDS ORDERED: PROPOFOL 200 MG/20 ML VIAL IV ONE (14:00)
--- NOTE | 2018-01-14 14:35 | OP ---
DATE OF PROCEDURE: 01/14/18 PREOPERATIVE DIAGNOSIS: 1. Symptomatic cholelithiasis with fatty infiltration of the liver. POSTOPERATIVE DIAGNOSIS: 1. Symptomatic cholelithiasis with fatty infiltration of the liver. 2. Chronic cholecystitis. 3. Cholesterolosis. PROCEDURE: 1. Laparoscopic cholecystectomy with intraoperative cholangiography using fluoroscopy. 2. Wedge biopsy, right lobe of the liver. SURGEON: Ian Canada MD. 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 ANESTHESIA: Local infiltration of 0.25% Marcaine with epinephrine and general endotracheal anesthesia. INDICATION: The patient is a 47-year-old female who has had several episodes of GI distress recently. The most recent was 2 to 3 days prior to admission with right upper quadrant pain and chest pain. She has a long history of reflux. She was admitted. Myocardial infarction was ruled out. Her liver functions jumped and an ultrasound revealed a normal common bile duct, thickened gallbladder wall with multiple stones. The patient was brought to the Surgical Suite today for cholecystectomy after the risks, benefits and alternatives to the procedure were discussed and accepted. FINDINGS: The gallbladder was thickened and edematous. There was cholesterolosis. There were multiple stones. Intraoperative cholangiography revealed free flow into the duodenum with no filling defects or strictures noted , but there was a generous common duct. There was also small visualization of the pancreatic duct. The liver showed early fatty infiltration. DESCRIPTION OF PROCEDURE: After adequate general endotracheal anesthesia was obtained, the patient was prepped and draped in the usual sterile manner. Surgical time-out was taken. The previous infraumbilical incision was infiltrated with local anesthesia. The skin was incised with a knife. Dissection was carried down through the subcutaneous tissue to the midline fascia. Traction sutures were placed on either side of the midline. A small incision was made in the midline fascia and the peritoneum was opened bluntly. Beau trocar was introduced under direct vision into the abdominal cavity and fixed in place with the 20 mL balloon. CO2 was then insufflated until a pressure of 12 mmHg was reached and the abdomen was tympanitic in all four quadrants. When this was done, the laparoscope was introduced. The abdomen was inspected with the previously noted findings. The patient was then placed in reverse Trendelenburg position, turned to the left side. The upper abdominal ports were placed under direct vision. The gallbladder was grasped, retracted anteriorly. The adhesions to the gallbladder were taken down using electrocautery and blunt dissection. The neck of the gallbladder was retracted laterally. The triangle of Calot was then explored bluntly with the cystic duct and cystic artery identified and isolated. The cystic duct was hemoclipped once proximally. The cystic artery was hemoclipped twice proximally and once distally. A small incision was made in the cystic duct. The cholangiogram catheter was introduced through a separate stab wound in the right upper quadrant, introduced into the cystic duct and clipped in place. Cholangiograms were then taken using fluoroscopy which revealed free flow into the duodenum with no filling defects or strictures noted. When this was done, the cystic duct catheter was removed. The cystic duct was hemoclipped three times distally and divided between the hemoclips. The cystic artery was divided. The gallbladder was then dissected free from the gallbladder bed of the liver using electrocautery. The gallbladder was removed from the infraumbilical port site in the usual manner under direct vision. When this was done, the infraumbilical port was irrigated copiously with saline. The port was replaced. At this time, subhepatic space and subphrenic space were irrigated copiously with saline. The effluent was noted to be clear. The gallbladder bed of the liver showed good hemostasis. The cortney hepatis was inspected and no bleeding or bile leak was identified. At this point, a wedge biopsy of the right lower lobe of the liver was performed first with the sharp scissors and then with electrocautery turned up to 50 for hemostasis. When hemostasis was noted to be adequate, the liver biopsy was brought out through the infraumbilical port. When this was done, again, the subhepatic space and subphrenic space were irrigated with saline. The effluent was noted to be clear. No further bleeding was identified. The upper abdominal ports were removed under direct vision. The middle port had a small amount of oozing which was controlled with electrocautery. When this was done, the CO2, the laparoscope and the infraumbilical port were removed. The infraumbilical port site fascia was approximated with a single [id number] suture of 0 Vicryl. Subcutaneous tissue was irrigated copiously with saline. Skin edges were approximated with 4-0 Vicryl subcuticular sutures, benzoin and Steri-Strips. Sterile dressings were applied. The patient was awakened and taken to the Recovery Room in good and stable condition. Estimated blood loss was 50 to 75 mL. All sponge, needle and instrument counts were correct. #[id number] [facility]
[2018-01-14] MEDS: ONDANSETRON INJ 4 MG/2 ML VIAL IV PRN (15:27)
[2018-01-14] MEDS: MORPHINE SULFATE INJ 10 MG/ML VIAL IV PRN (15:27)
[2018-01-14] MEDS: LACTATED RINGERS 1,000 ML IVS PRN (15:28)
[2018-01-14] MEDS: HYDROcodone 5MG/APAP 325MG 1 EA TAB PO PRN ×2 (18:30→23:20)
[2018-01-15] MEDS: MORPHINE SULFATE INJ 10 MG/ML VIAL IV PRN (01:01)
[2018-01-15] MEDS: LACTATED RINGERS 1,000 ML IVS PRN (01:07)
[2018-01-15] MEDS: ONDANSETRON INJ 4 MG/2 ML VIAL IV PRN (02:25)
[2018-01-15] MEDS: metroNIDAZOLE IV PREMIX 500MG 500 MG in PREMIX BAG 1 BAG IVPB SCH ×2 (02:33→11:19)
[2018-01-15] MEDS: PANTOPRAZOLE SODIUM IV 40 MG VIAL IV SCH (06:00)
[2018-01-15] MEDS ORDERED: levoFLOXacin 500MG IV 100 ML IVPB ONE (07:47)
[2018-01-15] MEDS ORDERED: metroNIDAZOLE IV PREMIX 500MG 100 ML IVPB ONE (07:48)
[2018-01-15] MEDS: levoFLOXacin 500MG IV 500 MG in PREMIX BAG 1 BAG IVPB SCH (09:30)
[2018-01-15] MEDS: ENOXAPARIN SODIUM 40 MG/0.4 ML SYG SUBCU SCH (09:30)
--- NOTE | 2018-01-15 10:51 | PN ---
SUPERVISING PHYSICIAN: Kris Flaherty MD DATE: 01/15/18 SUBJECTIVE: Dr. Canada has spoken to the patient about possible cholecystectomy. At this point, she is agreeable that she should have the procedure done. OBJECTIVE: VITAL SIGNS: Afebrile. Heart rate 60. Blood pressure 122/77. Respiratory rate 20. O2 saturation 96%. LABORATORY: Hepatitis panel is pending. Electrolytes are basically within normal limits with the exception of her liver enzymes have improved, but they are still elevated with an AST of 139, ALT 231, alkaline phosphatase 126. ASSESSMENT: 1. Chest pain, rule out myocardial infarction. 2. Cholecystitis and cholelithiasis, presently being prepped for cholecystectomy today per Dr. Canada, general surgeon. PLAN: We will continue present supportive care. We will follow her postoperatively. Dr. Canada, general surgeon, will follow her surgically. Otherwise, we will continue to monitor the patient closely and follow as needed. #[id number] MTDD
[2018-01-15 14:09] VITALS: BP 142/89; TEMP 96; O2SAT 99
[2018-01-15] MEDS: HYDROcodone 5MG/APAP 325MG 1 EA TAB PO PRN (14:19)
--- NOTE | 2018-01-15 21:46 | DS ---
SUPERVISING PHYSICIAN: Kris Flaherty M.D. DISCHARGE DIAGNOSIS: 1. Cholecystitis status post cholecystectomy per Dr. Ian Canada, general surgeon, postoperative day #1. 2. Chest pain rule out myocardial infarction most likely the chest pain was secondary to #1. She had a negative cardiac workup. 3. Elevated liver function tests that are improving. She has a negative hepatitis panel most likely secondary to cholecystitis. 4. Gastroesophageal reflux disease. 5. Thyroid nodule per CT scan. HISTORY OF PRESENT ILLNESS: This is a 47 year-old female patient that was at work today when she had an acute onset of right upper quadrant and substernal discomfort persisting over the last 2 to 3 hours prior to admission. She noted that she had been having some nausea and diarrhea with some right upper quadrant abdominal pain over the last week, but the pain had worsened today such that she sought medical attention for further evaluation and treatment. She also notes that she had been exposed to a grandson who has had Strep which she tested positive for Strep on 12/10/17 and was treated with Penicillin and Decadron as well as last week one of her granddaughters was visiting that had a gastrointestinal virus with nausea, vomiting and diarrhea. Her laboratory studies initially showed her white count was normal at 10,400 but a left shift was present. She had an elevated D-dimer at 366 with normal PT and PTT. Cardiac troponin showed to be less than 0.02 with amylase normal at 32. BNP was only slightly elevated at 231. Her initial EKG in the Emergency Department showed a normal sinus rhythm without any ST or T wave changes. She was given pain medicine in the E. R. to include morphine, Motrin and some Phenergan which did improve her symptoms as well as a GI cocktail. It should also be noted that the patient has had multiple surgeries on her foot and back, and has had chronic pain with this for which she takes a daily NSAID which includes Naproxen. She denied any blood in her stools in the recent past but has history of gastroesophageal reflux disease and requires daily Nexium that has apparently become quite troublesome in the last month or so if she misses any dose of her Nexium. Radiographically, she had an abdominal x-ray that initially showed nonspecific abdominal series per radiology interpretation with an elevated D-dimer and chest pain. She had a clear thoracic CTA and per radiology interpretation there was no evidence of acute pulmonary embolus and no significant pulmonary processes visualized. 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 Acutely included an increased density in the mesenteric fat in the mid abdomen that began just below the pancreas and extended to the level of the upper pelvis with scattered nodes within the tissue concerning for possible mesenteric adenitis, small bowel enteritis or lymphoma with no small bowel obstruction or definite inflammatory changes noted. Again the findings on CT were concerning for mesenteric adenitis versus enteritis. She was started on antibiotics to include Levaquin and Flagyl and is now going to be admitted to the Medical/Surgical floor for further treatment and evaluation. She was admitted in stable condition. HOSPITAL COURSE: Dr. Canada was consulted for general surgery as well as Dr. Crow. I was consulted initially due to the elevated liver enzymes. After discussion with Dr. Crow it was felt that t was most likely cholecystitis in origin, so he did not see her. Dr. Canada consulted and it was decided that he would take her to surgery to remove her gallbladder. She was placed on Flagyl and Levaquin prior to surgery. Her cardiac workup was negative. Her liver enzymes improved. She was taken to surgery yesterday for cholecystectomy. Postoperatively she had no problems. Yesterday she tolerated her clear liquids and today she tolerated a low fat diet without any problems. WBCs this morning were slightly elevated at 11.9 with hemoglobin 11.5 and hematocrit 35.5. Electrolytes were basically within normal limits. AST this morning was 69 with ALT of 181. Her preliminary blood cultures showed no growth after 3 days. She will be discharged home in stable condition. DISCHARGE PLAN: The patient will be discharged home in stable condition. She is to follow a low fat diet as instructed by Dr. Canada. Her activity level is as per Dr. Canada's instructions. She is to followup with Dr. Canada next week. She also has a followup appointment with her primary care physician, Jojo Burciaga, on 02/04/18 at 12:45. Her followup appointment with Dr. Canada is at 11:00 AM. She is to return to the hospital or followup with Dr. Canada's office or her primary care physician's office for any further problems or complications. DISCHARGE MEDICATIONS: 1. Nexium. 2. Hydrocodone. 3. Naprosyn. Dr. Flaherty is the collaborating physician available for consultation. #[id number] [facility]ITAL[facility]
== END 2018-01-15 15:11 | disposition home or self-care (01) | DRG 419 ==
LOC: ER 12:09 → MS 16:27
PROVIDERS: ADMIT Nurse Practitioner Family; ATTEND Nurse Practitioner Acute Care
PROC: BW21YZZ Computerized Tomography (CT Scan) of Abdomen and Pelvis using Other Contrast (ICD-10-PCS; 2018-01-12)
PROC: B32TYZZ Computerized Tomography (CT Scan) of Left Pulmonary Artery using Other Contrast (ICD-10-PCS; 2018-01-12)
PROC: B32SYZZ Computerized Tomography (CT Scan) of Right Pulmonary Artery using Other Contrast (ICD-10-PCS; 2018-01-12)
PROC: 0FT44ZZ Resection of Gallbladder, Percutaneous Endoscopic Approach (ICD-10-PCS; principal; 2018-01-14 12:30)
PROC: 0FB14ZX Excision of Right Lobe Liver, Percutaneous Endoscopic Approach, Diagnostic (ICD-10-PCS; 2018-01-14 12:30)
DX: K80.10 Calculus of gallbladder with chronic cholecystitis without obstruction (principal); K21.9 Gastro-esophageal reflux disease without esophagitis; K76.0 Fatty (change of) liver, not elsewhere classified; K44.9 Diaphragmatic hernia without obstruction or gangrene; G89.29 Other chronic pain; M41.9 Scoliosis, unspecified; E04.1 Nontoxic single thyroid nodule; R07.9 Chest pain, unspecified; R79.89 Other specified abnormal findings of blood chemistry; Z79.1 Long term (current) use of non-steroidal anti-inflammatories (NSAID); Z88.8 Allergy status to other drugs, medicaments and biological substances; Z79.899 Other long term (current) drug therapy; I88.0 Nonspecific mesenteric lymphadenitis

== ENCOUNTER 2018-09-09 09:32 | Emergency (ER) | payer OTHER ==
[2018-09-09 09:49] VITALS: TEMP 98
--- NOTE | 2018-09-09 09:53 | ED.PDOC ---
History of Present Illness - General Chief Complaint: Upper Extremity Injury Stated Complaint: L thumb injury Time Seen by Provider: 09/09/18 09:44 Source: patient Exam Limitations: no limitations - History of Present Illness Initial Comments: PT WAS ON HER KNEES AND LOST HER BALANCE. STOPPED HER FALL WIHT HER HAND. HEARD A "POP" WITH PAIN SINCE YESTERDAY. PAIN METACARPAL AND THUMB. Occurred: yesterday Pain - Upper Extremity: moderate: Hand, left Method of Injury: fell Improving Factors: nothing Worsening Factors: movement Allergies/Adverse Reactions: Allergies Codeine Adverse Reaction (Verified 09/09/18 09:43) Other "Makes her crazy" Home Medications: Ambulatory Orders Esomeprazole Magnesium [Nexium] 40 mg PO DAILY 01/12/18 Albuterol Sulfate [Proair Hfa] 2 puff INH Q4H PRN 09/09/18 Estradiol [Estrace] 1 mg PO DAILY 09/09/18 Gabapentin 100 mg PO BEDTIME 09/09/18 Indomethacin 50 mg PO TID PRN #14 cap 09/09/18 Review of Systems - Review of Systems Constitutional: Denies: chills, fever EENTM: States: no symptoms reported Musculoskeletal: States: other - PAIN L THUMB Skin: States: other - SWELLING, NO BRUISING Neurological: Denies: paresthesia, weakness Past Medical History (General) - Patient Medical History Hx Seizures: No Hx Stroke: No Hx Dementia: No Hx Asthma: Yes Hx of COPD: No Hx Cardiac Disorders: No Hx Congestive Heart Failure: No Hx Pacemaker: No Hx Hypertension: No Hx Thyroid Disease: No Hx Diabetes: No Hx Gastroesophageal Reflux: Yes Hx Renal Disease: No Hx Cancer: No Hx Hepatitis C: No Hx MRSA: No Surgical History: cholecystectomy, Hysterectomy, other - Vaccination History Hx Tetanus, Diphtheria Vaccination: No Hx Influenza Vaccination: No Hx Pneumococcal Vaccination: No - Social History Hx Tobacco Use: No Hx Chewing Tobacco Use: No Hx Alcohol Use: No Hx Substance Use: No Hx Substance Use Treatment: No Hx Depression: No Hx Physical Abuse: No Hx Emotional Abuse: No Hx Suspected Abuse: No - Female History Patient : No Family Medical History - Family History Mother Family History: Unknown Physical Exam - Physical Exam General Appearance: Obese Eyes, Ears, Nose, Throat Exam: PERRL/EOMI, normal ENT inspection Shoulder Exam: no evidence of injury Elbow/Forearm Exam: non-tender, no evidence of injury, normal ROM Wrist Exam: normal inspection, non-tender, no evidence of injury, normal ROM Hand Exam: swelling - TTP FIRST METACARPAL, DIFFUSE TTP THUMB, MILD SWELLING, NO BONY DEFORMITY, NL CAP REFILL Neuro/Tendon: normal sensation, normal motor functions, normal tendon functions Mental Status: alert, oriented x 3 Skin Exam: normal color, warm/dry Progress - EKG/XRAY/CT XRAY: hand - NO FX, ELIO Departure - Departure Clinical Impression: Elevated blood pressure reading Contusion of hand Qualifiers: Encounter type: initial encounter Laterality: left Qualified Code(s): S60.222A - Contusion of left hand, initial encounter Time of Disposition: 11:23 Disposition: Discharge to Home or Self Care Condition: Excellent Departure Forms: ED Discharge - Pt. Copy, Patient Portal Self Enrollment Instructions: Contusion (DC) Referrals: MADAY KING [Primary Care Provider] - 1-2 Weeks Prescriptions: Indomethacin 50 mg PO TID PRN #14 cap PRN Reason: Pain Home Medications: Ambulatory Orders Esomeprazole Magnesium [Nexium] 40 mg PO DAILY 01/12/18 Albuterol Sulfate [Proair Hfa] 2 puff INH Q4H PRN 09/09/18 Estradiol [Estrace] 1 mg PO DAILY 09/09/18 Gabapentin 100 mg PO BEDTIME 09/09/18 Indomethacin 50 mg PO TID PRN #14 cap 09/09/18 Additional Instructions: FOLLOW UP WITH YOUR DOCTOR FOR BLOOD PRESSURE RECHECK
--- NOTE | 2018-09-09 10:14 | RAD ---
EXAM DESCRIPTION: Left hand, 3 views CLINICAL HISTORY: Fall injury with hand pain FINDINGS/ IMPRESSION: Soft tissue swelling of the index finger and possibly the thumb and middle finger No fracture No advanced arthrosis Electronically signed by: Kris Barahona MD 09/09/2018 10:13 AM [facility]
[2018-09-09 11:27] VITALS: BP 153/96; O2SAT 94
== END 2018-09-09 11:25 | disposition home or self-care (01) ==
LOC: ER 09:32
DX: S60.222A Contusion of left hand, initial encounter (principal); W18.39XA Other fall on same level, initial encounter; Z88.5 Allergy status to narcotic agent; J45.909 Unspecified asthma, uncomplicated; K21.9 Gastro-esophageal reflux disease without esophagitis